=== PATIENT | female | born 1950 | race Caucasian/White ===

== ENCOUNTER 2024-01-15 17:12 | Emergency (ER) | payer OTHER, MEDICARE ==
[2024-01-15 18:02] LABS: Absolute Basophils 0.2 K/uL (0-0.5); Absolute Eosinophils 0.1 K/uL (0-0.5); Absolute Lymphocytes (CBC) 2.7 K/uL (0.7-4.9); Absolute Monocytes 0.8 K/uL (0.1-1.3); Absolute Neutrophil 6.7 K/uL (1.8-8.0); Eosinophils % 1.3 % (0-4.4); Hematocrit 40.7 % (36.0-45.0); Hemoglobin 13.7 g/dL (12.0-15.0); Lymphocytes % 25.4 % (15.3-44.8); MCH 29.9 pg (27.0-35.0); MCHC 33.7 g/dL (32.0-36.0); MCV 88.7 fL (80-100); MPV 7.4 fL (7.6-11.3); Monocytes % 7.4 % (3.3-12.3); Neutrophils % 63.9 % (41.7-73.7); Nucleated Red Blood Cells % 0.2 % (0-0); Platelets 251 thou/uL (152-406); RBC Red Blood Cell Count 4.59 M/uL (3.86-4.86); Red Cell Distribution Width 15.6 % (12.1-15.2)
[2024-01-15 18:15] LABS: PT Prothrombin Time 11.2 SECONDS (9.4-12.5)
[2024-01-15 18:18] LABS: Albumin 4.1 g/dL (3.4-5.0); Anion Gap 5.8 mEq/L (5.0-15.0); Bilirubin Total 0.5 mg/dL (0.2-1.0); Globulin 4.1 g/dL (2.3-3.5); Potassium 3.8 mEq/L (3.5-5.1); Protein, Total 8.2 g/dL (6.4-8.2)
[2024-01-15 18:22] LABS: ALT/SGPT 29 U/L (13-56); AST/SGOT 15 U/L (15-37); Albumin 4.1 g/dL (3.4-5.0); Alkaline Phosphatase 117 U/L (45-117); Bilirubin Total 0.5 mg/dL (0.2-1.0); Globulin 4.1 g/dL (2.3-3.5); Magnesium 2.3 mg/dL (1.6-2.4); NT PRO-BNP 203 pg/mL (<450); Protein, Total 8.2 g/dL (6.4-8.2); Troponin High Sensitivity 5.4 pg/mL (<58.9)
[2024-01-15 18:28] LABS: Bilirubin Direct < 0.2 mg/dL (0-0.2); Bilirubin Indirect, Calculated 0.3 mg/dL (0.2-0.8)
--- NOTE | 2024-01-15 18:43 | RAD REPORT ---
Procedure: Chest Single View HISTORY: Chest pain/headache COMPARISON: none FINDINGS: The lungs appear clear of acute infiltrate. No significant pleural effusion noted. The heart is mildly enlarged. IMPRESSION: No acute abnormality is displayed.
--- NOTE | 2024-01-15 19:23 | RAD REPORT ---
EXAMINATION: CT HEAD WITHOUT CONTRAST CT CERVICAL SPINE WITHOUT CONTRAST CLINICAL INDICATION: Headache. Neck pain. TECHNIQUE: Axial CT images from the skull base to the vertex without intravenous contrast. Axial CT i mages through the cervical spine were obtained without intravenous contrast. Sagittal and coronal reformatted images were created from the data set. Coronal and sagittal reformatted images were creat ed from the data set. One or more of the following dose reduction techniques were used: Automated exposure control, adjustment of the mA and/or kV according to patient size, and/or iterative reconstr uction. Unless otherwise specified, incidental findings do not require dedicated imaging follow-up. [id number]. Comparison: none FINDINGS: 2 cm right frontal bone lucency. 2.1 cm right parietal bone lucency.. Intracranial bleed not noted. Ventricles are normal in caliber. No significant hypodensity within the brain No extra-axial fluid collection. No fluid within the sinuses/mastoids No fracture or dislocation is seen involving the cervical spine. Disc bulge and osteophytes C5-6 results in mild narrowing of the sac measuring 9 mm. Mild to moderate narrowing of foramina bilaterally Disc bulge and osteophytes C6-7 results in mild to moderate narrowing right neural foramina. Mild anterior subluxation C7 on T1 and T1 on T2. IMPRESSION: 2 right skull lucencies may represent arachnoid granulations. Neoplasm such as metastases or myeloma or other considerations.. MRI of the brain with contrast recommended recommended A cervical fracture is not seen. Spondylosis C5-6 results in mild central and mild to moderate bilateral foraminal stenosis. Spondylosis C6-7 to moderate right foraminal stenosis
--- NOTE | 2024-01-15 19:32 | RAD REPORT ---
EXAMINATION: CTA HEAD CLINICAL INDICATION: Headache TECHNIQUE: Axial CT images were obtained through the head after 100 cc Isovue-370 intravenous contras t utilizing angiographic protocol with 3D post-processing (maximum intensity projection images, volume rendered images and/or shaded surface rendered images). One or more of the following dose red uction techniques were used: Automated exposure control, adjustment of the mA and/or kV according to patient size, and/or iterative reconstruction. Unless otherwise specified, incidental findings do not require dedicated imaging follow-up. COMPARISON: None FINDINGS: Distal internal carotid, anterior cerebral, middle cerebral and posterior cerebral arteries do not de monstrate a significant stenosis origin posterior cerebral arteries. Mild narrowing of the basilar artery. An aneurysm not noted. 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
--- NOTE | 2024-01-15 19:38 | RAD REPORT ---
EXAMINATION: Neck Angio CLINICAL INDICATION: Neck pain TECHNIQUE: Axial CT images were obtained from the aortic arch to the skull base after intravenous adm inistration of 100 cc Isovue-370 utilizing angiographic protocol. Multiplanar reformats, as well as 3D post-processing (maximum intensity projection images, volume rendered images and/or shaded surface rendered images) were generated and reviewed. One or more of the following dose reduction techniques were used: Automated exposure control, adjustment of the mA and/or kV according to patient size, and/or iterative reconstruction. Unless otherwise specified, incidental findings do not require dedicated imaging follow-up. COMPARISON: No prior exam. FINDINGS: The visualized aortic arch and great vessels do not demonstrate a significant abnormality Mild plaque is present within the carotid arteries. No significant abnormality vertebral arteries seen No significant stenosis noted. A dissection is not seen. Methods for NASCET criteria: Mild stenosis, 0% to 49%; Moderate stenosis 50% to 69%; Severe stenosis, 70% to 99% IMPRESSION: No acute vascular abnormality displayed
[2024-01-15] MEDS ORDERED: NA CHLORIDE 0.9% 100 ML ONE (20:07)
[2024-01-15] MEDS ORDERED: METOCLOPRAMIDE 10 MG/2mL INJ ONE (20:07)
[2024-01-15] MEDS ORDERED: DIPHENHYDRAMINE 50 MG/ML VIAL ONE (20:07)
[2024-01-15] MEDS ORDERED: METHOCARBAMOL 1,000 MG/10 ML VIAL ONE (20:07)
--- NOTE | 2024-01-15 20:45 | EDPHYS ---
Physician Documentation [facility] Name: Ni Molina Age: 73 yrs Sex: Female : 1950 Arrival Date: 01/15/2024 Time: 17:12 Bed 17 Private MD: ED Physician Alverto Burroughs HPI: 01/14 17:35 This 73 yrs old Female presents to ER via Ambulatory with complaints of STIFF NECK, cp Facial Swelling. 17:35 The patient complains of pain to the right occipital area. The patient describes the cp headache as aching, constant. Onset: The symptoms/episode began/occurred this weekend, became worse yesterday. now having neck stiffness and neck swelling. 17:35 Associated signs and symptoms: Pertinent positives: neck stiffness, Pertinent cp negatives: altered mental status, fever, paresthesias, vomiting, weakness. Severity of symptoms: in the emergency department the pain is unchanged, despite home interventions. Headache History: Denies prior headaches. the symptoms are aggravated by movement. Historical: - Allergies: 17:29 Ibuprofen; aa5 - PMHx: 17:29 Arthritis; thyroid problem; aa5 - PSHx: 17:29 section; esophagus; heels; aa5 - Immunization history:: Adult Immunizations unknown. - Infectious Disease History:: Denies. - Social history:: Smoking status: Patient denies any tobacco usage or history of. ROS: 17:40 Constitutional: Negative for body aches, chills, fever, poor PO intake, cp 17:40 Neck: Positive for pain with movement, pain at rest, stiffness, swelling, tenderness, cp 17:40 Eyes: Negative for injury, pain, redness, and discharge, cp 17:40 ENT: Negative for drainage from ear(s), ear pain, sore throat, difficulty swallowing, difficulty handling secretions, hoarseness, 17:40 Cardiovascular: Negative for chest pain, edema, palpitations, 17:40 Respiratory: Negative for cough, shortness of breath, wheezing, 17:40 Abdomen/GI: Negative for abdominal pain, vomiting, diarrhea, constipation, 17:40 Back: Negative for pain at rest, pain with movement, 17:40 Skin: Negative for cellulitis, rash, 17:40 Neuro: Positive for headache, Negative for altered mental status, numbness, syncope, weakness, 17:40 All other systems are negative, Exam: 17:45 Constitutional: The patient appears in no acute distress, alert, awake, cp non-diaphoretic, non-toxic, well developed, well nourished, uncomfortable, 17:45 Head/Face: Normocephalic, atraumatic. cp 17:45 Eyes: Periorbital structures: appear normal, Pupils: equal, round, and reactive to light and accomodation, Extraocular movements: intact throughout, Conjunctiva: normal, no exudate, no injection, Sclera: no appreciated abnormality, Lids and lashes: appear normal, bilaterally, 17:45 ENT: External ear(s): are unremarkable, Nose: is normal, Mouth: Lips: moist, Oral mucosa: pink and intact, moist, Posterior pharynx: Airway: no evidence of obstruction, patent, 17:45 Neck: ROM/movement: pain, that is moderate, with any movement, Meningeal signs: are not present, nuchal rigidity, is not appreciated, 17:45 Chest/axilla: Inspection: normal, 17:45 Cardiovascular: Rate: normal, Rhythm: regular, Edema: is not appreciated, JVD: is not appreciated, 17:45 Respiratory: the patient does not display signs of respiratory distress, Respirations: normal, no use of accessory muscles, no retractions, labored breathing, is not present, Breath sounds: are clear throughout, no decreased breath sounds, no stridor, no wheezing, 17:45 Abdomen/GI: Inspection: abdomen appears normal, Palpation: abdomen is soft and non-tender, in all quadrants, 17:45 Back: pain, is absent, CVA tenderness, is absent, 17:45 Skin: no rash present. 17:45 Neuro: Orientation: to person, place \T\ time. Mentation: is normal, Cerebellar function: is grossly normal, Motor: moves all fours, strength is normal, Sensation: no obvious gross deficits, 20:33 ECG was reviewed by the Attending Physician. cp Vital Signs: 17:27 BP 181 / 68; Pulse 64; Resp 18 S; Temp 98.3(TE); Pulse Ox 97% on R/A; Weight 77.11 kg aa5 (R); Height 5 ft. 5 in. (R); 20:00 BP 159 / 70; Pulse 73; Resp 18; Pulse Ox 96% ; cp4 21:00 BP 131 / 71; Pulse 79; Resp 18; Pulse Ox 96% ; cp4 17:27 Body Mass Index 28.29 (77.11 kg, 165.1 cm) aa5 MDM: 17:33 Medical Screening Exam initiated cp 18:30 Differential diagnosis: cluster headache, hypertensive headache, hyponatremia, cp intracerebral hemorrhage, meningitis, meningoencephalitis, migraine, sinusitis, subarachnoid bleed, subdural hematoma, tension headache. 20:40 Differential diagnosis: cervical strain, whiplash, bulging disc, spinal stenosis. Data cp reviewed: vital signs, nurses notes, lab test result(s), radiologic studies, CT scan, plain films, and as a result, I will discharge patient. I considered the following discharge prescriptions or medication management in the emergency department Medications were administered in the Emergency Department. See MAR. Independent interpretation of the following test(s) in the Emergency Department EKG: See my EKG interpretation above. Discussion of test interpretation with radiology: I had a discussion with radiology regarding a test interpretation. results of CT concerning for lucencies. patient was aware and reports having seen oncology. 20:43 Counseling: I had a detailed discussion with the patient and/or guardian regarding the cp historical points, exam findings, and any diagnostic results supporting the discharge/admit diagnosis, lab results, radiology results, the need for outpatient follow up, a family practitioner, to return to the emergency department if symptoms worsen or persist or if there are any questions or concerns that arise at home. 20:43 Response to treatment: the patient's symptoms have markedly improved after treatment, cp and as a result, I will discharge patient. 01/14 17:32 Order name: CBC with Diff; Complete Time: 18:43 aa5 01/14 18:43 Interpretation: Normal except: RDW 15.6; MPV 7.4; BASO% 2.0. cp 01/14 17:32 Order name: CMP; Complete Time: 18:43 aa5 01/14 18:44 Interpretation: Normal except: CL 108; GLUC 109; CRE 1.13; GFR 51; CA 11.3; GLOB 4.1; cp A/G 1.0. 01/14 17:52 Order name: LFT's; Complete Time: 18:43 cp 01/14 18:44 Interpretation: Normal except: GLOB 4.1; A/G 1.0. cp 01/14 17:52 Order name: Magnesium; Complete Time: 18:43 cp 01/14 17:52 Order name: NT PRO-BNP; Complete Time: 18:43 cp 01/14 17:52 Order name: PT-INR; Complete Time: 18:43 cp 01/14 17:52 Order name: Troponin HS; Complete Time: 18:43 cp 01/14 17:52 Order name: XRAY Chest (1 view); Complete Time: 19:44 cp 01/14 19:44 Interpretation: Report review. 01/14 17:52 Order name: CT Head C Spine; Complete Time: 19:44 cp 01/14 17:52 Order name: CT Neck Angio; Complete Time: 19:44 cp 01/14 18:42 Order name: Head angio; Complete Time: 19:44 EDMS 01/14 17:52 Order name: EKG; Complete Time: 17:53 01/14 17:32 Order name: IV Saline Lock; Complete Time: 17:53 aa5 01/14 17:33 Order name: Labs collected and sent; Complete Time: 17:53 aa 01/14 17:52 Order name: Cardiac monitoring; Complete Time: 20:01 01/14 17:52 Order name: EKG - Nurse/Tech; Complete Time: 20:30 01/14 17:52 Order name: O2 Per Protocol; Complete Time: 20:01 01/14 17:52 Order name: O2 Sat Monitoring; Complete Time: 20:01 01/14 20:36 Order name: Vital Signs: to include blood pressure; Complete Time: 21:03 cp EC:33 Rate is 74 beats/min. Rhythm is regular. LA interval is prolonged at 208 msec. QRS cp interval is normal. QT interval is normal. T waves are Inverted in lead aVR. Interpreted by me. Reviewed by me. Administered Medications: 17:52 CANCELLED (Physician Discretion): morphineor iv 4 mg IVP once over 4 mins cp 20:16 Drug: metoCLOPramide IVP 10 mg IVP once; over 1 to 2 minutes Route: IVP; Site: left cp4 antecubital; 21:38 Follow up: Response: No adverse reaction cp4 20:16 Drug: diphenhydrAMINE IVP 25 mg IVP once Route: IVP; Site: left antecubital; cp4 21:38 Follow up: Response: No adverse reaction cp4 20:16 Drug: Methocarbamol IVPB 1 grams IVPB once over 1 hrs; (mix in NS 100 mL) Route: IVPB; cp4 Infused Over: 1 hrs; Site: left antecubital; 21:38 Follow up: Response: No adverse reaction; IV Status: Completed infusion cp4 Disposition Summary: 01/15/24 20:44 Discharge Ordered Notes: Location: Home cp Problem: new cp Symptoms: have improved cp Condition: Stable cp Diagnosis - Headache cp - Cervicalgia cp Followup: cp - With: Private Physician - When: 2 - 3 days - Reason: Recheck today's complaints Discharge Instructions: - Discharge Summary Sheet cp - Muscle Strain cp - Musculoskeletal Pain cp - Acute Torticollis, Adult cp - Heat Therapy cp - Neck Exercises cp Forms: - Medication Reconciliation Form cp - Antibiotic Education cp - Prescription Opioid Use cp - Patient Portal Instructions cp - Leadership Thank You Letter cp Prescriptions: - Celebrex 100 mg Oral Capsule - take 1 tablet ORAL route once daily As needed take with food; 20 capsule; cp Refills: 0, Product Selection Permitted - Medrol (Johnny) 4 mg Oral Tablets, Dose Pack - take 1 tablet ORAL route as directed - follow package instructions; 1 packet; cp Refills: 0, Product Selection Permitted - methocarbamol 750 mg Oral tablet - take 1 tablet ORAL route 3 times per day; 30 tablet; Refills: 0, Product cp Selection Permitted Signatures: Dispatcher [employer] Cintia Ruiz RN RN aa5 Alverto Nichols PA PA cp Potter, Christina cp4 Corrections: (The following items were deleted from the chart) 17:52 17:52 morphine IVP or IV 4 mg IVP once over 4 mins ordered. cp cp 01/15 18:33 01/14 17:40 Neck: Positive for cp cp
--- NOTE | 2024-01-15 20:45 | ER ---
Nurse's Notes [facility] Name: Ni Molina Age: 73 yrs Sex: Female : 1950 Arrival Date: 01/15/2024 Time: 17:12 Bed 17 Private MD: Diagnosis: Headache;Cervicalgia Presentation: 01/14 17:27 Chief complaint: Patient states: "I started with a stiff neck yesterday and now I have aa5 this headache on the back of my head and some swelling on my neck that is worse on my left side than my right". Coronavirus screen: headache. Ebola Screen: Patient denies travel to an Ebola-affected area in the 21 days before illness onset. Initial Sepsis Screen: Does the patient meet any 2 criteria? No. Patient's initial sepsis screen is negative. Does the patient have a suspected source of infection? No. Patient's initial sepsis screen is negative. Risk Assessment: Do you want to hurt yourself or someone else? Patient reports no desire to harm self or others. Onset of symptoms was January 14, 2024. 17:27 Acuity: FILEMON 2 aa5 17:27 Method Of Arrival: Ambulatory aa5 Historical: - Allergies: 17:29 Ibuprofen; aa5 - PMHx: 17:29 Arthritis; thyroid problem; aa5 - PSHx: 17:29 section; esophagus; heels; aa5 - Immunization history:: Adult Immunizations unknown. - Infectious Disease History:: Denies. - Social history:: Smoking status: Patient denies any tobacco usage or history of. Screenin:18 [facility] ED Fall Risk Assessment (Adult) History of falling in the last 3 months, cp4 including since admission No falls in past 3 months (0 pts) Confusion or Disorientation No (0 pts) Intoxicated or Sedated No (0 pts) Impaired Gait No (0 pts) Mobility Assist Device Used No (0 pt) Altered Elimination No (0 pt) Score/Fall Risk Level 0 - 2 = Low Risk Oriented to surroundings, Maintained a safe environment, Assessed \\T\\ reinforced patient's understanding of fall precautions, Hourly rounding (assess needs \\T\\ fall precautionary measures) done. Abuse screen: Denies threats or abuse. Nutritional screening: No deficits noted. Tuberculosis screening: No symptoms or risk factors identified. Assessment: 20:18 General: Appears uncomfortable, Behavior is calm, cooperative, appropriate for age. cp4 Pain: Complains of pain in neck and head Pain currently is 7 out of 10 on a pain scale. Neuro: Level of Consciousness is awake, alert, obeys commands, Oriented to person, place, time, situation. Cardiovascular: Patient's skin is warm and dry. Respiratory: Airway is patent Respiratory effort is even, unlabored. GI: No signs and/or symptoms were reported involving the gastrointestinal system. : No signs and/or symptoms were reported regarding the genitourinary system. EENT: No signs and/or symptoms were reported regarding the EENT system. Derm: No signs and/or symptoms reported regarding the dermatologic system. Musculoskeletal: Reports neck stiffness. Vital Signs: 17:27 BP 181 / 68; Pulse 64; Resp 18 S; Temp 98.3(TE); Pulse Ox 97% on R/A; Weight 77.11 kg aa5 (R); Height 5 ft. 5 in. (R); 20:00 BP 159 / 70; Pulse 73; Resp 18; Pulse Ox 96% ; cp4 21:00 BP 131 / 71; Pulse 79; Resp 18; Pulse Ox 96% ; cp4 17:27 Body Mass Index 28.29 (77.11 kg, 165.1 cm) aa5 ED Course: 17:21 Patient arrived in ED. mg5 17:27 Arm band placed on. aa5 17:28 Triage completed. aa5 17:33 Alverto Nichols PA is PHCP. cp 17:33 Alverto Burroughs MD is Attending Physician. cp 17:53 Inserted saline lock: 22 gauge in left antecubital area, using aseptic technique. Blood cc6 collected. Flushed with 10 mL NS. 17:54 Initial lab(s) drawn, by me, sent to lab. cc6 18:26 XRAY Chest (1 view) In Process Unspecified. EDMS 19:03 CT Head C Spine In Process Unspecified. EDMS 19:03 CT Neck Angio In Process Unspecified. EDMS 19:03 Head angio In Process Unspecified. EDMS 19:54 Tricia Cobb is Primary Nurse. cp4 20:18 Bed in low position. Call light in reach. Side rails up X 1. cp4 20:18 No provider procedures requiring assistance completed. cp4 21:39 Provided Education on: muscle strain. cp4 21:39 intact, bleeding controlled, No redness/swelling at site. Pressure dressing applied. cp4 Administered Medications: 17:52 CANCELLED (Physician Discretion): morphineor iv 4 mg IVP once over 4 mins cp 20:16 Drug: metoCLOPramide IVP 10 mg IVP once; over 1 to 2 minutes Route: IVP; Site: left cp4 antecubital; 21:38 Follow up: Response: No adverse reaction cp4 20:16 Drug: diphenhydrAMINE IVP 25 mg IVP once Route: IVP; Site: left antecubital; cp4 21:38 Follow up: Response: No adverse reaction cp4 20:16 Drug: Methocarbamol IVPB 1 grams IVPB once over 1 hrs; (mix in NS 100 mL) Route: IVPB; cp4 Infused Over: 1 hrs; Site: left antecubital; 21:38 Follow up: Response: No adverse reaction; IV Status: Completed infusion cp4 Medication: 20:18 VIS not applicable for this client. cp4 Outcome: 20:44 Discharge ordered by MD. cp 21:39 Discharged to home ambulatory, cp4 21:39 Condition: stable 21:39 Discharge instructions given to patient, Instructed on discharge instructions, follow up and referral plans. medication usage, Demonstrated understanding of instructions, follow-up care, medications, Prescriptions given X 3, 21:40 Patient left the ED. cp4 Signatures: Dispatcher [employer] EDMS Cintia Edwards RN RN aa5 Alverto Nichols PA PA Oly Pike mg5 Tricia Cobb cp4 Courtney Cross cc6 Corrections: (The following items were deleted from the chart) 21:38 20:00 BP 131 / 71; Pulse 78bpm; Resp 18bpm; Pulse Ox 96%; cp4 cp4
[2024-01-15 23:19] VITALS: TEMP 98.3
[2024-01-15 23:20] VITALS: O2SAT 96
[2024-01-15 23:21] VITALS: BP 131/71
--- NOTE | 2024-01-16 12:17 | EKG ---
Test Date: 2024-01-15 Test Time: 20:27:17 [employer] Eng[employer]ver: NANCY MEASUREMENT RESULTS: Intervals: Rate: 74 [place]: 208 QRSD: 68 QT: 422 QTc: 468 [place]: P: 69 NJ: 208 QRS: -20 T: 57 INTERPRETIVE STATEMENTS: Normal sinus rhythm Normal ECG No previous ECG available for comparison Electronically Signed On 01-16-24 12:15:57 [employer]ORE SALES LEADER by Miguelito Cobb
== END 2024-01-15 21:40 | disposition home or self-care (01) ==
LOC: ER 17:12
DX: R51.9 Headache, unspecified (principal); M54.2 Cervicalgia
CPT/HCPCS: 93005; 85025; 36415; 83735; 85610; 80076; 84484; 80053; 83880; 70450; 72125; 70496; 70498; 71045; Q9967; J2765; J1200; J2800; 96365; 96375; 99284